=== PATIENT | male | born 1970 | race Caucasian/White ===

== ENCOUNTER 2023-08-23 21:26 | Inpatient (IN) | payer SELFPAY ==
[~2023-08-23] VITALS: Ht 170.2 cm; Wt 64.0 kg
[2023-08-24 01:19] LABS: BASOPHILS % 0.9 % (0.0-2.0); EOSINOPHILS % 0.7 % (0.0-5.0); HEMATOCRIT. 40.3 % (42.0-52.0); HEMOGLOBIN. 13.5 g/dL (14.0-18.0); LYMPHOCYTES % 24.2 % (20.0-50.0); MEAN CORPUSCULAR HEMOGLOBIN 30.4 pg (28.0-32.0); MEAN CORPUSCULAR HGB CONC 33.6 g/dL (31.0-37.0); MEAN CORPUSCULAR VOLUME 90.5 fL (80.0-94.0); MEAN PLATELET VOLUME 6.9 fl (7.4-10.4); MONOCYTES % 11.1 % (2.0-8.0); NEUTROPHILS % 63.1 % (40.0-76.0); PLATELET 202 x1000/uL (130-400); RED BLOOD CELL COUNT 4.45 mill/uL (4.7-6.1); RED CELL DISTRIBUTION WIDTH 13.7 % (11.6-14.6); WHITE BLOOD COUNT 7.3 x1000/uL (4.5-11.0)
[2023-08-24] MEDS: SODIUM CHLORIDE 0.9% 1,000 ML IV ONE (01:27)
[2023-08-24] MEDS: MORPHINE SULFATE 4 MG/ML CPJ (NOT FOR IM USE) IV STA (01:27)
[2023-08-24] MEDS: ONDANSETRON HCL 4MG/2ML INJ IV STA (01:27)
[2023-08-24 01:37] LABS: ALANINE AMINOTRANSFERASE 18 IU/L (10-49); ALBUMIN 4.3 g/dL (3.2-4.8); ASPARTATE AMINOTRANSFERASE 31 IU/L (<34); BILIRUBIN TOTAL 0.6 mg/dL (0.1-1.0); CALCIUM 8.9 mg/dL (8.7-10.4); CARBON DIOXIDE 25 mEq/L (21-32); CHLORIDE 104 mEq/L (98-107); CREATININE 0.8 mg/dL (0.6-1.3); GLUCOSE 85 mg/dL (70-105); POTASSIUM 3.6 mEq/L (3.5-5.1); PROTEIN TOTAL 6.8 g/dL (6.0-8.3); SODIUM 139 mEq/L (136-145); UREA NITROGEN BLOOD 16 mg/dL (9-23)
[2023-08-24 01:39] LABS: ETHANOL BLOOD < 10 mg/dL (<10)
[2023-08-24] MEDS: KETOROLAC 15MG/ML VIAL IV ONE (03:05)
[2023-08-24 03:55] LABS: TROPONIN I HIGH SENSITIVITY 8 ng/L (3.0-53)
[2023-08-24 03:57] LABS: CLARITY URINE CLEAR (CLEAR); COLOR URINE YELLOW (YELLOW); GLUCOSE URINE NEGATIVE (NEGATIVE); KETONES URINE NEGATIVE (NEGATIVE); LEUKOCYTE ESTERASE URINE NEGATIVE (NEGATIVE); NITRITE URINE NEGATIVE (NEGATIVE); OCCULT BLOOD URINE NEGATIVE (NEGATIVE); PH URINE 5.5 (4.5-8.0); PROTEIN URINE NEGATIVE (NEGATIVE); SPECIFIC GRAVITY URINE 1.009 (1.005-1.030); UROBILINOGEN URINE 0.2 E.U./dL (0.2-1.0)
[2023-08-24 03:58] LABS: *AMPHETAMINES SCREEN URINE NEGATIVE (NEGATIVE); *BARBITURATES SCREEN URINE NEGATIVE (NEGATIVE); *BENZODIAZEPINES SCREEN URINE NEGATIVE (NEGATIVE); *COCAINE SCREEN URINE NEGATIVE (NEGATIVE); CANNABINOID URINE SCREEN NEGATIVE (NEGATIVE); ECSTASY MDMA SCREEN URINE NEGATIVE (NEGATIVE); METHADONE URINE SCREEN Neg (NEGATIVE); OPIATES URINE SCREEN PRESUMPTIVE POSITIVE (NEGATIVE); PHENCYCLIDINE URINE SCREEN NEGATIVE (NEGATIVE)
[2023-08-24] MEDS ORDERED: IPRATROPIUM/ALBUTEROL 0.5-3(2.5)MG/3ML NEB HHN PRN (05:00)
[2023-08-24] MEDS ORDERED: MAGNESIUM/ALUMINUM HYDROXIDE/SIMETHICONE 30ML UDC PO PRN (05:00)
[2023-08-24] MEDS: MVI, ADULT NO.1 10 ML, FOLIC ACID 1 MG, THIAMINE HCL 100 MG in SODIUM CHLORIDE 0.9% 1,0... IV NR (05:30)
[2023-08-24 05:39] LABS: INR 1.1; PROTHROMBIN TIME 11.5 sec (9.6-11.0)
[2023-08-24 05:58] LABS: CREATINE KINASE MB FRACTION 7.2 ng/mL (0.5-3.6)
[2023-08-24] MEDS: PANTOPRAZOLE SODIUM 40 MG/VIAL IV SCH (07:18)
[2023-08-24 08:00] VITALS: BP 121/82; PULSE 60; RESP 18; TEMP 97.5
[2023-08-24 09:30] VITALS: BP 121/82; PULSE 60; RESP 18; TEMP 97.5
[2023-08-24 09:59] VITALS: BP 121/82; PULSE 60; RESP 18; TEMP 97.5
[2023-08-24] MEDS ORDERED: ACETAMINOPHEN 325MG TABLET PO PRN (10:15)
[2023-08-24 12:00] VITALS: BP 101/63; PULSE 72; RESP 19; TEMP 96.5
[2023-08-24] MEDS: ENOXAPARIN 40MG/0.4ML SYR SUBCUT SCH (13:12)
[2023-08-24] MEDS: KETOROLAC 30MG/ML VIAL IV PRN (13:12)
[2023-08-24 16:00] VITALS: BP 104/66; PULSE 60; RESP 20; TEMP 96.1
[2023-08-24 20:00] VITALS: BP 99/51; PULSE 58; RESP 16; TEMP 97.3
[2023-08-24] MEDS: ONDANSETRON HCL 4MG/2ML INJ IV PRN (21:51)
[2023-08-24 23:03] LABS: CREATINE KINASE MB FRACTION 6.9 ng/mL (0.5-3.6)
[2023-08-25] VITALS: BP 140/88; PULSE 68; RESP 19; TEMP 98.3
[2023-08-25 04:00] VITALS: BP 107/61; PULSE 58; RESP 16; TEMP 98.9
[2023-08-25 07:25] LABS: CALCIUM 8.4 mg/dL (8.7-10.4); CARBON DIOXIDE 28 mEq/L (21-32); CHLORIDE 107 mEq/L (98-107); CREATININE 0.8 mg/dL (0.6-1.3); GLUCOSE 81 mg/dL (70-105); PHOSPHORUS 3.5 mg/dL (2.5-4.9); POTASSIUM 3.9 mEq/L (3.5-5.1); SODIUM 140 mEq/L (136-145); THYROID STIMULATING HORMONE 1.09 uIU/mL (0.55-4.78); UREA NITROGEN BLOOD 11 mg/dL (9-23)
[2023-08-25 07:32] LABS: BASOPHILS % 1.2 % (0.0-2.0); EOSINOPHILS % 4.5 % (0.0-5.0); HEMATOCRIT. 34.2 % (42.0-52.0); HEMOGLOBIN. 11.9 g/dL (14.0-18.0); LYMPHOCYTES % 37.4 % (20.0-50.0); MEAN CORPUSCULAR HEMOGLOBIN 30.5 pg (28.0-32.0); MEAN CORPUSCULAR HGB CONC 34.7 g/dL (31.0-37.0); MEAN CORPUSCULAR VOLUME 87.7 fL (80.0-94.0); MEAN PLATELET VOLUME 7.1 fl (7.4-10.4); MONOCYTES % 10.7 % (2.0-8.0); NEUTROPHILS % 46.2 % (40.0-76.0); PLATELET 154 x1000/uL (130-400); RED CELL DISTRIBUTION WIDTH 13.9 % (11.6-14.6); WHITE BLOOD COUNT 4.1 x1000/uL (4.5-11.0)
[2023-08-25 08:00] VITALS: BP 102/64; PULSE 60; RESP 19; TEMP 98.1
[2023-08-25] MEDS ORDERED: METR-167 MT (11:32)
[2023-08-25 12:00] VITALS: BP 112/72; PULSE 60; RESP 19; TEMP 98.1
[2023-08-25 13:10] VITALS: BP 112/72; PULSE 60; TEMP 98.1; O2SAT 99
[2023-08-25] MEDS ORDERED: CEFTRIAXONE 1GM PREMIX 50 ML IV SCH (15:30)
[2023-08-25] MEDS ORDERED: VANCOMYCIN 1.25GM PMX (XELLIA) 250 ML IV NR (16:00)
[2023-08-26] MEDS ORDERED: VANCOMYCIN 1.25GM PMX (XELLIA) 250 ML IV SCH (06:00)
[2023-08-26] MEDS ORDERED: FAMOTIDINE 20MG/2ML VIAL IV SCH (09:00)
== END 2023-08-25 13:30 | disposition home or self-care (01) | DRG 241 ==
LOC: ER 21:26 → 6EST 08-24 05:53 → EDBEDREQ 08-24 06:01 → EDBEDREQTM 08-24 06:01
PROVIDERS: ADMIT Internal Medicine; ATTEND Internal Medicine
DX: K29.70 Gastritis, unspecified, without bleeding (principal); N30.90 Cystitis, unspecified without hematuria; D64.9 Anemia, unspecified; I10 Essential (primary) hypertension; K57.90 Diverticulosis of intestine, part unspecified, without perforation or abscess without bleeding; Z59.01 Sheltered homelessness; Z79.899 Other long term (current) drug therapy; Z88.1 Allergy status to other antibiotic agents
CPT/HCPCS: 36415; 71045; 74176; 80048; 80053; 80305; 80320; 81003; 82550; 82553; 83605; 83735; 84100; 84443; 84484; 85025; 93005; 99285; C9113; J0696; J1650; J1885; J2270; J2405; J3370; J3411; J3490; J7030; G0480